=== PATIENT | male | born 1995 | race African-American/Black ===

== ENCOUNTER 2021-08-22 00:23 | Emergency (ER) | payer OTHER ==
[~2021-08-22] VITALS: Ht 177.8 cm; Wt 82.5 kg
--- NOTE | 2021-08-22 03:23 | REPVR ---
PROCEDURE INFORMATION: Exam: CT Head without Contrast Exam date and time: 08/22/21 (1:40am) Age: 25 years old Clinical indication: Fall on head. Concussion / head injury. TECHNIQUE: Imaging protocol: Computed tomography of the head without contrast Radiation optimization: All CT scans at this facility use at least one of these dose optimization techniques: automated exposure control; mA and/or kV adjustment per patient size (includes targeted exams where dose is matched to clinical indication); or iterative reconstruction. COMPARISON: No relevant prior studies available FINDINGS: Brain: Unremarkable. No acute hemorrhage. Unremarkable white matter. No mass effect. Cerebral ventricles: No ventriculomegaly. Paranasal sinuses: Visualized sinuses are unremarkable. No air-fluid levels. Mastoid air cells: Visualized mastoid air cells are well aerated. Bones/joints: Unremarkable. No acute fracture. Soft tissues: Unremarkable. IMPRESSION: No acute intracranial pathology. Electronically signed by: Shaila Higuera On 08/22/2021 03:22:37 AM
--- NOTE | 2021-08-22 03:30 | REPVR ---
PROCEDURE INFORMATION: Exam: CT Cervical Spine without Contrast Exam date and time: 08/22/21 (1:48am) Age: 25 years old Clinical indication: Fall on head. Neck pain. TECHNIQUE: Imaging protocol: Computed tomography images of the cervical spine without contrast Radiation optimization: All CT scans at this facility use at least one of these dose optimization techniques: automated exposure control; mA and/or kV adjustment per patient size (includes targeted exams where dose is matched to clinical indication); or iterative reconstruction. COMPARISON: No relevant prior studies available FINDINGS: Vertebrae: No acute fracture. Minimal anterolisthesis of C4 on C5. Anterolisthesis of C7 on T1 (by approx. 4 mm). Bilateral facet arthropathy changes. Discs/Spinal canal: No significant spinal canal stenosis. Multilevel degenerative changes. Disc space narrowing at the C4-C5 through C7-T1 level. Soft tissues: Unremarkable. Lungs: Lung apices are normal. IMPRESSION: No acute traumatic findings. Multilevel degenerative changes. Anterolisthesis of C4 on C5, and C7 on T1 (see comments above). Electronically signed by: Shaila Higuera On 08/22/2021 03:29:31 AM
[2021-08-22 03:54] VITALS: BP 121/65
== END 2021-08-22 03:56 | disposition home or self-care (01) ==
LOC: M ED 00:23
DX: S14.2XXA Injury of nerve root of cervical spine, initial encounter (principal); W01.0XXA Fall on same level from slipping, tripping and stumbling without subsequent striking against object, initial encounter; Y92.138 Other place on military base as the place of occurrence of the external cause; Y99.1 Military activity

== ENCOUNTER 2022-04-07 12:49 | Emergency (ER) | payer OTHER ==
[~2022-04-07] VITALS: Ht 177.8 cm; Wt 84.2 kg
[2022-04-07 12:50] VITALS: BP 129/78
[2022-04-07] MEDS ORDERED: METH-1165 PO (15:04)
[2022-04-07] MEDS ORDERED: NAPR-837 PO (15:04)
== END 2022-04-07 15:24 | disposition home or self-care (01) ==
LOC: M ED 12:49
DX: S39.012A Strain of muscle, fascia and tendon of lower back, initial encounter (principal); S89.91XA Unspecified injury of right lower leg, initial encounter; X50.0XXA Overexertion from strenuous movement or load, initial encounter; Y93.67 Activity, basketball

== ENCOUNTER 2023-03-16 12:22 | Emergency (ER) | payer OTHER ==
[~2023-03-16] VITALS: Ht 177.8 cm; Wt 86.1 kg
[~2023-03-16 12:22] MED LIST: METH-1165 PO; NAPR-837 PO
[2023-03-16 14:03] LABS: BASO % 0.6 % (0.0-1.0); EOS % 0.4 % (0.0-3.0); HEMATOCRIT 40.5 % (42.0-52.0); HEMOGLOBIN 13.5 g/dl (13.5-17.5); LYMPH # 1.3 10^3/uL (1.5-5.0); LYMPH % 25.1 % (24.0-44.0); MEAN CORPUSCULAR HEMOGLOBIN 27.4 pg (27.0-33.0); MEAN CORPUSCULAR HGB CONC 33.3 g/dl (32.0-36.5); MEAN CORPUSCULAR VOLUME 82.3 fl (80.0-96.0); MONO # 0.4 10^3/uL (0.0-0.8); MONO % 7.8 % (2.0-8.0); NEUTROPHILS # 3.3 10^3/uL (1.5-8.5); NEUTROPHILS % 65.9 % (36.0-66.0); PLATELET COUNT, AUTOMATED 253 10^3/uL (150-450); RED BLOOD COUNT 4.92 10^6/uL (4.30-6.10)
[2023-03-16 14:24] LABS: BLOOD UREA NITROGEN 17 MG/DL (9-23); CALCIUM LEVEL 9.7 MG/DL (8.5-10.1); CARBON DIOXIDE LEVEL 27 MMOL/L (20-31); CHLORIDE LEVEL 103 MMOL/L (98-107); CK-MB VALUE MASS 2.4 NG/ML (<3.6); CREATININE FOR GFR 1.22 MG/DL (0.70-1.30); GLOMERULAR FILTRATION RATE > 60.0 (>60); GLUCOSE, FASTING 87 MG/DL (60-100); POTASSIUM SERUM 3.7 MMOL/L (3.5-5.1); SODIUM LEVEL 137 MMOL/L (136-145)
[2023-03-16 14:25] LABS: CPK CREATINE PHOSPHOKINASE 365 U/L (46-171); MB/CK RELATIVE INDEX 0.65 (< OR =4)
[2023-03-16] MEDS ORDERED: NS 1,000 ML IV ONE (14:50)
[2023-03-16] MEDS ORDERED: ISOVUE-370 76% 100ML VIAL As Ordered ONE (15:16)
[2023-03-16 15:44] LABS: CK-MB VALUE MASS 2.3 NG/ML (<3.6)
[2023-03-16 15:45] LABS: MB/CK RELATIVE INDEX 0.66 (< OR =4)
[2023-03-16 15:53] LABS: INR 1.03; PROTHROMBIN TIME 13.7 SECONDS (12.5-14.5)
[2023-03-16 15:54] LABS: PARTIAL THROMBOPLASTIN TIME 30.9 SECONDS (24.8-34.2)
[2023-03-16 17:26] LABS: CK-MB VALUE MASS 1.9 NG/ML (<3.6)
[2023-03-16 17:30] LABS: MB/CK RELATIVE INDEX 0.56 (< OR =4)
[2023-03-16 17:31] VITALS: BP 108/67
== END 2023-03-16 18:24 | disposition home or self-care (01) ==
LOC: M ED 12:22
DX: R07.89 Other chest pain (principal); R74.8 Abnormal levels of other serum enzymes; Z79.899 Other long term (current) drug therapy
CPT/HCPCS: 36415; 71046; 71275; 80048; 82550; 82553; 84484; 85025; 85610; 85730; 93005; 99284; Q9967

== ENCOUNTER → 2023-12-17 | Outpatient (CLI) | payer OTHER | LOC: M SOG 13:04 | PROVIDERS: ATTEND Physician Assistant | DX: M25.531 Pain in right wrist (principal) ==

== ENCOUNTER 2024-02-07 07:16 | Day surgery (SDC) | payer OTHER ==
[~2024-02-07] VITALS: Ht 177.8 cm; Wt 83.8 kg
[2024-02-07] MEDS ORDERED: LR 1,000 ML IV SCH ×2 (07:30→10:55)
[2024-02-07] MEDS ORDERED: fentaNYL 100 MCG/2 ML INJECTION As Ordered ONE (08:01)
[2024-02-07] MEDS ORDERED: MIDAZOLAM INJ 2MG/2ML VIAL As Ordered ONE (08:01)
[2024-02-07] MEDS ORDERED: propofoL 200 MG/20 ML VIAL As Ordered ONE (08:02)
[2024-02-07] MEDS ORDERED: ONDANSETRON 4MG 2ML VIAL As Ordered ONE (08:02)
[2024-02-07] MEDS ORDERED: LIDOCAINE 2% 100MG/5ML SDV (FOR ANES.) As Ordered ONE (08:02)
[2024-02-07] MEDS ORDERED: ACETAMINOPHEN 1000MG 100ML IV BAG As Ordered ONE (08:20)
[2024-02-07] MEDS: ceFAZolin 2 GM/D5W 50 ML IV BAG As Ordered ONE (08:46)
[2024-02-07] MEDS ORDERED: ceFAZolin SOD 2 GM in IV 1 EA IV ONE (09:00)
[2024-02-07] MEDS ORDERED: KETOROLAC 60MG 2ML VIAL As Ordered ONE (09:11)
[2024-02-07] MEDS ORDERED: dexmedeTOMIDine (4MCG/ML)200MCG/50ML BTL (PRECEDEX) As Ordered ONE (09:11)
[2024-02-07] MEDS ORDERED: oxyCODONE 5MG TAB PO PRN (10:55)
[2024-02-07] MEDS ORDERED: fentaNYL 100 MCG/2 ML INJECTION IV PRN (10:55)
[2024-02-07] MEDS ORDERED: ONDANSETRON 4MG 2ML VIAL IV PRN (10:55)
[2024-02-07] MEDS: BACITRACIN OINTMENT 30GM TUBE As Ordered ONE (10:57)
[2024-02-07] MEDS ORDERED: PERC5TAB12 PO (11:22)
[2024-02-07 11:55] VITALS: BP 123/81; TEMP 97.3; O2SAT 100
== END 2024-02-07 12:22 | disposition home or self-care (01) ==
LOC: M SDC 07:16
PROVIDERS: ATTEND Orthopaedic Surgery Hand Surgery
DX: S63.8X1A Sprain of other part of right wrist and hand, initial encounter (principal); X58.XXXA Exposure to other specified factors, initial encounter; Y92.89 Other specified places as the place of occurrence of the external cause; Y93.89 Activity, other specified; Y99.8 Other external cause status; R07.9 Chest pain, unspecified; R06.83 Snoring
CPT/HCPCS: 25320; 76000; C1713; J0131; J0665; J0690; J1100; J1885; J2250; J2405; J3010